=== PATIENT | female | born 1990 | race Caucasian/White ===

== ENCOUNTER 2016-10-04 13:18 | Emergency (ER) | payer MEDICAID ==
[~2016-10-04 13:18] MED LIST: CYCLOBENZAPRINE10 M1 PO; FLAGYL250 M1 PO; NO HOME MEDICATION XX; NORCO 5/3251 TAB PO
== END 2016-10-04 16:18 | disposition left against medical advice (07) ==
LOC: EDMED 13:18
DX: Z34.92 Encounter for supervision of normal pregnancy, unspecified, second trimester (principal); Z53.21 Procedure and treatment not carried out due to patient leaving prior to being seen by health care provider